=== PATIENT | female | born 1995 | race Caucasian/White ===

== ENCOUNTER 2020-07-19 12:23 | Outpatient (REF) | payer OTHER, SELFPAY ==
--- NOTE | ~2020-07-19 | XR_ITS ---
EXAMINATION: XR HAND, LEFT CLINICAL INFORMATION: Pain in left fingers COMPARISON: None TECHNIQUE: PA, lateral, and oblique views of the left hand. FINDINGS: The bones and soft tissues are normal. No fracture. Alignment is anatomic. Joint spaces are maintained. No erosions or soft tissue calcifications. XR/XR hand LT min 3V IMPRESSION: Normal left hand.
== END 2020-07-19 12:24 | disposition home or self-care (01) ==
LOC: HO.HMGCX 12:23
PROVIDERS: PCP Internal Medicine; Visit Provider Physician Assistant
DX: M79.645 Pain in left finger(s) (principal)
CPT/HCPCS: 73130

== ENCOUNTER 2021-04-17 13:05 | Outpatient (REF) | payer OTHER, SELFPAY ==
--- NOTE | ~2021-04-17 | XR_ITS ---
EXAMINATION: XR ABDOMEN KUB CLINICAL INDICATION: Dorsalgia. COMPARISON: None TECHNIQUE: AP view of the abdomen. FINDINGS: There is moderate stool seen throughout the colon without any significant distention. There is no radiopaque calculi. No organomegaly. There is incidental finding of an IUD in the pelvis is noted. No gross bony abnormality. XR/XR KUB IMPRESSION: Mild constipation.
[2021-04-17 17:25] LABS: Appearance Urine HAZY; Color Urine YELLOW; Glucose Urine UA NEG (NEG); Leukocyte Esterase Urine NEG (NEG); Nitrite Urine NEG (NEG); Urine Blood NEG (NEG); Urine Ketones NEG (NEG); Urine Protein NEG (NEG-TRACE)
[2021-04-18 01:29] LABS: CT PCR NOT DETECTED (Not Detect.); NG PCR NOT DETECTED (Not Detect.)
== END 2021-04-17 13:06 | disposition home or self-care (01) ==
LOC: HO.HMGCX 13:05
PROVIDERS: Visit Provider Physician Assistant
DX: R30.0 Dysuria (principal); R39.15 Urgency of urination; M54.9 Dorsalgia, unspecified; Z11.8 Encounter for screening for other infectious and parasitic diseases; Z11.3 Encounter for screening for infections with a predominantly sexual mode of transmission; Z97.5 Presence of (intrauterine) contraceptive device
CPT/HCPCS: 74018; 81003; 87086; 87491; 87591

== ENCOUNTER 2023-08-17 08:13 | Outpatient (AMB) | payer OTHER, SELFPAY ==
--- NOTE | 2023-08-17 08:18 | AM.OFFWIN_ITS ---
Intake Vital Signs 08/17/23 08:25 Height 5 ft 2 in BP 124/70 Blood Pressure Location Lt brachial Position Sitting Pulse 84 Pulse Source Pulse Oximeter Temp 97.8 F Temp Source Temporal Artery Scan Pulse Oximetry (%) 98 Oxygen Delivery Method Room Air Intake Visit Reasons: Possible Sinus infection,throat & ear pain (lobby) Intake Note: pt is here today for sinus infection throat and ear pain started thursday Patient Tobacco Use Status: Never used Tobacco Allergies No Known Allergies Allergy (Verified 08/17/23 08:27) Bee Zee Allergy (Unknown, Uncoded 08/17/23 08:27) Unknown Do you need a note to return to daycare/school/sports/work: Yes HPI HPI Comments History of Present Illness Details Patient presents to the walk in for 3 days cough, sinus congestion, ear pain, sore throat No known sick contacts Denies fever, chest pain, shortness of breath, palpitations, syncope, weakness Has been taking OTC medications with minimal improvement. [facility] Social History Patient Tobacco Use Status: Never used Tobacco Review of Systems Const All systems reviewed & are unremarkable except as noted in HPI and below Physical Exam Vital Signs: Last Vital Signs Temp 97.8 F 08/17/23 08:25 Pulse 84 08/17/23 08:25 BP 124/70 08/17/23 08:25 Pulse Ox 98 08/17/23 08:25 Oxygen Delivery Method Room Air 08/17/23 08:25 General: awake, alert, oriented. Answers questions appropriately. Fully engaged in examination. Skin: warm, dry, intact HEENT: TMs intact bilaterally, without erythema. Posterior pharynx without erythema or exudate. Sclera without icterus or injection. Cardiac: External chest normal in appearance. RRR Respiratory: +cough. LSCTAB. Abdomen: without gross distension. Neurological: Oriented to person, place, time and situation. Thought process intact. Psychiatric: Appropriate mood and affect. Good judgment and insight. Results AMB Rapid Strep AMB Rapid Strep Negative Last Edit by Yessy Howard MA on 08/17/23 08:37 Results Reviewed Results Reviewed: Rapid strep negative Assessment & Plan Assessment & Plan (1) URI (upper respiratory infection): Code(s): J06.9 - Acute upper respiratory infection, unspecified Plan URI, no abx warranted. Rapid strep negative SARS-CoV2/FLU/RSV swab collected, results pending. Patient aware she will be called with results. Benzonatate 100mg po bid as needed Rest, drink plenty of fluids, tylenol or motrin as needed. Recommend taking OTC nasal decongestants or flonase. Follow up with pcp or in clinic for any new or worsening symptoms. Go to ER for shortness of breath, chest pain, palpitations, weakness, dizziness. Orders: Orders SARS-CoV2/FLU/RSV Today J06.9 - Acute upper respiratory infection, unspecified Medications: New benzonatate 100 mg PO BID PRN 20 caps 0RF cough Coding Level of Care Code Est Pt Level 3 (30508) Diagnoses URI (upper respiratory infection) J06.9
[2023-08-17 08:25] VITALS: BP 124/70; PULSE 84; TEMP 36.6; O2SAT 98
== END 2023-08-17 09:10 | disposition home or self-care (01) ==
PROVIDERS: PCP Nurse Practitioner Family; Visit Provider Registered Nurse Emergency
DX: J06.9 Acute upper respiratory infection, unspecified (principal)
CPT/HCPCS: 99213

== ENCOUNTER 2023-08-17 08:38 | Outpatient (REF) | payer OTHER, SELFPAY ==
[2023-08-17 11:53] LABS: Influenza A PCR NEGATIVE (Negative); Influenza B PCR NEGATIVE (Negative); Resp Syncy Virus RNA Qual PCR NEGATIVE (Negative); SARS COV2 PCR INHOUSE POSITIVE (Negative)
== END 2023-08-17 08:39 | disposition home or self-care (01) ==
LOC: HO.LAB 08:38
PROVIDERS: Visit Provider Registered Nurse Emergency
DX: Z11.52 Encounter for screening for COVID-19 (principal); J06.9 Acute upper respiratory infection, unspecified
CPT/HCPCS: 0241U

== ENCOUNTER 2024-01-01 10:56 | Outpatient (AMB) | payer OTHER, SELFPAY ==
--- NOTE | 2024-01-01 10:58 | A.OFFPC_ITS ---
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 (Asthma) Intake Note: new patient visit Allergies beeswax Allergy (Mild, Verified 01/01/24 11:22) Rash salicylic acid Allergy (Mild, Verified 01/01/24 11:22) Rash Medication List - Last Reconciled 01/01/24 by Flori Burgos, [facility]- albuterol sulfate 90 mcg/actuation 2 puffs inhalation Q6H PRN budesonide-formoterol 80-4.5 mcg/actuation (Symbicort) 2 puffs inhalation BID famotidine 20 mg PO BID fluticasone propionate 50 mcg/actuation 2 sprays intranasal QAM levonorgestrel-ethinyl estrad 0.1-20 mg-mcg (Sronyx) 1 tab PO DAILY montelukast 10 mg PO DAILY Tobacco use date assessed: 01/01/24 Dental Screening Dental Screen Date: 01/01/24 Did you have a dental visit in the last 12 months?: No Did you have a dental problem in the last 6 months where you did not have access to dental care?: No Was dental information given to patient?: Patient has dentist HPI HPI Comments History of Present Illness Details 28 y/o F with asthma, obesity, uterine f ibroid s/p removal, GERD, RIVER Surgery: 07/2022 uterine fibroid removal Family hx: Dad 03/2022 throat cancer dx now in remission [smoker] etoh abuse sober for years, Mom asthma Siblings: twin sister, younger 1/2 sister alive and well MGM sinus cancer MGF pancreatic cancer PGM breast cancer PGF liver cancer 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 Does plan to conceive after September 2024 HEALTH MAINTENANCE: PAP reports WNL done in 2021 TDAP today SPECIALISTS: JACQUARD FIXER Pulm @ [facility] Here today to establish care and for complete physical exam. Coming from [facility] in [place] No medical records avail to me Dx with asthma 06/2022 after being placed under sedation for uterine fibroid removal, she suffered respiratory failure, was intubated and placed in ICU for 24 hours. Was able to have successful surgery the next month w/o respiratory incident. Routine f/u with Pulm at [facility], cleared for annual visits. Reports that her symptoms are controlled. She does have triggers such as strong fragrances. Significant family hx of cancer; Reports genetic workup in past negative. In regards to mood, has returned to gym to help. Overall feels tired all of the time. Getting September 2024, bought house. So has addl stressors. Wakes feeling tired, other than snoring negative ESS. Has never had sleep study. Has used counseling in past, not helpful. Was given hydroxyzine while hospitalized with + effect. Nothing else since. Reports that the anxiety symptoms are there all of the time. Uses grounding to help. Eye exam: last exam 2 years ago, goes every other year. Wears glasses Skin: generally dry skin. Appetite: doing intermittent fasting, has GERD well controlled with famotidine b.i.d.. Normal elimination patterns. 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 Knot like sensation, pain when turning neck. Has never done PT. Plan check labs consider starting SSRI vs PRN medication to help w/ anxiety Tdap today Continue follow up with pulmonology as well as gynecological assistant. Refer to physical therapy to help with the back pain. If this is not effective could consider chiropractic medicine. Incidental noting of enlarged tonsils. Patient reports that this is lifelong. Has never had an ENT evaluation. Reports childhood strep infections, nothing recent. May benefit from an ENT evaluation in the future. Return to the office in 4-6 weeks to review labs and discuss starting medications to help with anxiety. This note is constructed using voice recognition software. While every effort has been made to ensure accuracy in complaint supervisor, still errors may have been included Sometimes, these errors may affect the content or meaning of the given sentence . [facility] Medical History (Updated 01/01/24 @ 14:37 by [facility] Asthma Surgical History (Updated 01/01/24 @ 11:17 by Maria Elena Mckeon) H/O myomectomy Family History (Updated 01/01/24 @ 11:19 by Maria Elena Mckeon) Father Substance abuse Throat cancer Mother Asthma Maternal Grandmother Breast cancer Pancreas cancer Paternal Grandfather Maxillary sinus cancer Liver cancer Social History (Updated 01/01/24 @ 11:10 by Maria Elena Mckeon) Household Members: Other Household Members Other:: fiance Housing: House Alcohol intake: never Patient Tobacco Use Status: Never used Tobacco e-Cigarette/Vaping Use: Never Used service: No Current occupational status: employed 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 1. Little interest or pleasure in doing things: not at all 2. Feeling down, depressed, or hopeless: not at all 3. Trouble falling or staying asleep, or sleeping too much: several days 4. Feeling tired or having little energy: several days 5. Poor appetite or overeating: several days 6. Feeling bad about yourself - or that you are a failure or have let yourself or your family down: several days 7. Trouble concentrating on things, such as reading the newspaper or watching television: not at all 8. Moving or speaking so slowly that other people could have noticed. Or the opposite - being so fidgety or restless that you have been moving around a lot more than usual: not at all 9. Thoughts that you would be better off or of hurting yourself in some way: not at all Total score: 4 Depression Screening Interpretation: Negative Depression Screening Done: Yes 12583 - PHQ-9 Billing: Yes Source: Developed by Drs. Luis Dawson, Tri Sagastume, Km Melgoza and colleagues, with an educational radames from [employer]. Thrive Questionnaire Date Thrive assessed: 01/01/24 I am a: Patient What is your living situation today?: I have a steady place to live Within the past 12 months, did the food you bought not last and you didn't have the money to get more?: Never true Within the past 12 months, did you worry whether your food would run out before you got money to buy more?: Never true Do you have trouble paying for medicines?: No Do you have trouble getting transportation to medical appointments?: No Do you have trouble paying your heating and electricity bill?: No Do you have trouble taking care of your child, family member or friend?: No Do you have trouble with day-to-day activities such as bathing, preparing meals, shopping, managing finances, etc.?: No Are you currently unemployed and looking for a job?: No Are you interested in more education?: No Please select the resources that you would like help with: None THRIVE Score: 0 AUDIT C Alcohol Use Questionnaire (AUDIT-C) 1. How often do you have a drink containing alcohol?: Monthly or less 2. How many drinks containing alcohol do you have on a typical day when you are drinking?: 1 or 2 3. How often do you have six or more drinks on one occasion?: Never Total Score: 1 Score Reviewed/Action Taken: Yes RIVER-7 AMB Questionnaire RIVER-7 Date RIVER - 7 assessed: 01/01/24 Feeling nervous, anxious, or on edge: 1 = Several days Not being able to stop or control worryin = Several days Worrying too much about different things: 1 = Several days Trouble relaxin = Not at all Being so restless that it is hard to sit still: 0 = Not at all Becoming easily annoyed or irritable: 0 = Not at all Feeling afraid as if something awful might happen: 0 = Not at all Total RIVER-7 score (0-4 normal; 5-9 mild; 10-14 moderate; 15-21 severe): 3 Source: Developed by Drs. Luis Dawson, Tri Sagastume, Km Melgoza and colleagues, with an educational radames from [employer]. RIVER-7 Assessment Billing RIVER-7 Assessment Tool: RIVER-7 Assessment 83879 ACT Questionnaire In the past 4 weeks, how much of the time did your asthma keep you from getting as much done at work, school or at home?: Most of the time During the past 4 weeks, how often have you had shortness of breath?: 1-2 times a week During the past 4 weeks, how often did your asthma symptoms wake you up at night or earlier than usual in the morning?: Once or twice per week During the past 4 weeks, how often have you had to use your rescue inhaler or nebulizer medication?: Once a week or less How would you rate your asthma control during the past 4 weeks?: Somewhat controlled ACT Interpretation: Positive (active w pulm,using ISATU once per week. ) ACT Branch: Other Score: 17 Review of Systems Const Details: Constitutional: Denies fever. Skin: Denies rash. Eye: Denies eye pain. ENMT: Denies sore throat and nasal congestion. Respiratory: Denies shortness of breath and cough. Gastrointestinal: Denies nausea, vomiting or abdominal pain. Cardiovascular: Denies chest pain and syncope. Genitourinary: Denies dysuria. Musculoskeletal: Denies and extremity pain. Neurologic: Denies headaches, confusion, and weakness. Psychiatric: Denies suicidal thoughts and substance abuse. Allergy/ Immunologic: Denies impaired immunity. Physical exam (Primary Care) Vital Signs: Last Vital Signs Pulse 95 01/01/24 11:04 Resp 14 01/01/24 11:04 BP 118/70 01/01/24 11:04 Pulse Ox 98 01/01/24 11:04 Oxygen Delivery Method Room Air 01/01/24 11:04 BMI result Body Mass Index 35.7 BMI Assessment/Plan discussion: High BMI High, discussed plan: lifestyle Tobacco/Smoking Status: Tobacco use Status Tobacco use date assessed 01/01/24 01/01/24 11:19 Patient Tobacco Use Status Never used Tobacco 01/01/24 11:19 e-Cigarette/Vaping Use Never Used 01/01/24 11:19 PHQ-9: PHQ-9 Score PHQ-9: Total score 4 01/01/24 14:31 Depression Screening Interpretation: Negative Thrive Assessment: Date of Thrive Assessment Date Thrive assessed 01/01/24 01/01/24 11:19 Const Other: General: Well developed, well nourished, in no acute distress. Appears stated age. Head: Normocephalic, atraumatic. Eyes: Pupils are equal, round and reactive to light and accommodation. Conjunctivae are clear. Vision grossly normal. Ears: TMs clear AU, EACS WNL Nose: Patent, without discharge. Mouth: There are no ulcers or lesions noted. No inflammation, no post nasal drip, no plaques nor exudates.Tonsils grade 2-3, uvula midline Neck: Supple, no adenopathy or thyromegaly. Lungs: Clear to auscultation bilaterally. No rales, rhonchi or wheeze noted. Good air flow in all robert. Heart: Regular rate and rhythm. No murmurs, click, rubs or gallops are noted. Abdomen: Bowel sounds present in all quadrants. The abdomen is soft, nontender, with no masses or organomegaly noted. No hernias are noted. Musculoskeletal: Joints are nontender, without swelling, redness, or effusions. Range of motion is observed to be normal. Pulses: Peripheral pulses are equal and palpable bilaterally. Extremities: No clubbing, cyanosis nor edema is noted. Neurologic: Gait and station normal. Cranial Nerves 2-12 intact. Motor strength grossly symmetrical and intact. No sensory loss. Balance normal. Skin: No rashes, ulcers, or lesions noted. Turgor is good. Skin color is good. Hair and nails are without abnormalities. Psych: Normal eye contact, affect and mood appropriate, and normal interactions. Patient is alert and appropriate to context. Assessment and Plan Assessment & Plan (1) Encounter for general adult medical examination without abnormal findings: Code(s): Z00.00 - Encounter for general adult medical examination without abnormal findings (2) Laboratory exam ordered as part of routine general medical examination: Code(s): Z00.00 - Encounter for general adult medical examination without abnormal findings (3) Upper back pain: Code(s): M54.9 - Dorsalgia, unspecified (4) Mild intermittent asthma in adult without complication: Code(s): J45.20 - Mild intermittent asthma, uncomplicated (5) RIVER (generalized anxiety disorder): Code(s): F41.1 - Generalized anxiety disorder (6) Severe obesity (BMI 35.0-35.9 with comorbidity): Comment: BMI > 35 with asthma Code(s): E66.01 - Morbid (severe) obesity due to excess calories; Z68.35 - Body mass index [BMI] 35.0-35.9, adult (7) GERD without esophagitis: Code(s): K21.9 - Gastro-esophageal reflux disease without esophagitis Orders: Orders Complete Blood Count no Diff Today Z00.00 - Encounter for general adult medical examination without abnormal findings Hemoglobin A1c Today Z00.00 - Encounter for general adult medical examination without abnormal findings TSH reflex Free T4 Today Z00.00 - Encounter for general adult medical examination without abnormal findings IRON PROFILE Today Z00.00 - Encounter for general adult medical examination without abnormal findings Comprehensive Met. Panel Today Z00.00 - Encounter for general adult medical examination without abnormal findings LDL Cholesterol Direct Today Z00.00 - Encounter for general adult medical examination without abnormal findings Vitamin B12 and Folate Today Z00.00 - Encounter for general adult medical examination without abnormal findings PT Evaluation and Treatment Today M54.9 - Dorsalgia, unspecified Medications: New montelukast 10 mg PO DAILY 90 tabs 2RF Patient Instructions: Health screenings for women You should visit your health care provider from time to time, even if you are healthy. The purpose of these visits is to: Screen for medical issues Assess your risk for future medical problems Encourage a healthy lifestyle Update vaccinations and other preventive care services Help you get to know your provider in case of an illness Information Even if you feel fine, you should still see your provider for regular checkups. These visits can help you avoid problems in the future. For example, the only way to find out if you have high blood pressure is to have it checked regularly. High blood sugar and high cholesterol levels also may not have any symptoms in the early stages. A simple blood test can check for these conditions. There are specific times when you should see your provider or receive specific health screenings. The [place] Preventive Services Task Force publishes a list of recommended screenings. Below are screening guidelines for women ages 18 to 39. BLOOD PRESSURE SCREENING Your blood pressure should be checked at least once every 3 to 5 years if: Your blood pressure is in the normal range (top number less than 120 mm Hg and bottom number less than 80 mm Hg) You don't have risk factors for high blood pressure Ask your provider if you need your blood pressure checked more often if: The top number is 120 to 129 mm Hg or the bottom number is 70 to 79 mm Hg You have diabetes, heart disease, kidney problems, are overweight, or have cert ain other health conditions You have a first-degree relative with high blood pressure You are Black You had high blood pressure during a If the top number is 130 mm Hg or greater or the bottom number is 80 mm Hg or greater, this is considered stage 1 hypertension. Schedule an appointment with your provider to learn how you can reduce your blood pressure. Watch for blood pressure screenings in your area. Ask your provider if you can stop in to have your blood pressure checked. BREAST CANCER SCREENING Experts do not agree about the benefits of breast self-exams in finding breast cancer or saving lives. Talk to your provider about what is best for you. A screening mammogram is not recommended for most women under age 40. Your provider may discuss and recommend mammograms, MRI scans, or ultrasounds if you have an increased risk for breast cancer, such as: A mother or sister who had breast cancer at a young age (most often starting screening earlier than the age the close relative was diagnosed) You carry a high-risk genetic marker CERVICAL CANCER SCREENING Cervical cancer screening should start at age 21 years unless your provider advises otherwise. After the first test: Women ages 21 through 29 should have a Pap test every 3 years. Exoprts do not agree on whether HPV testing is recommended for this age group. Women ages 30 through 65 should be screened with either a Pap test every 3 years or the HPV test every 5 years or both tests every 5 years (called cotesting ). Women who have been treated for precancer (cervical dysplasia) should continue to have Pap tests for 20 years after treatment or until age 65, whichever is longer. If you have had your uterus and cervix removed (total hysterectomy), and you have not been diagnosed with cervical cancer or precancer (high grade cervical neoplasia), you do not need cervical cancer screening. CHOLESTEROL SCREENING Cholesterol screening should begin at: Age 45 for women with no known risk factors for coronary heart disease Age 20 for women with known risk factors for coronary heart disease Repeat cholesterol screening should take place: Every 5 years for women with normal cholesterol levels More often if changes occur in lifestyle (including weight gain and diet) More often if you have diabetes, heart disease, kidney problems, or certain other conditions DIABETES SCREENING You should be screened for diabetes starting at age 35 and then repeated every 3 years if you have no risk factors for diabetes. Screening may need to start earlier and be repeated more often if you have other risk factors for diabetes, such as: You have a first degree relative with diabetes. You are overweight or have obesity. You have high blood pressure, prediabetes, or a history of heart disease. Screening for diabetes should be done if you are planning to become and you are overweight and have other risk factors such as high blood pressure. DENTAL EXAM Go to the dentist once or twice every year for an exam and cleaning. Your dentist will evaluate if you need more frequent visits. EYE EXAM Have an eye exam every 5 to 10 years before age 40. If you have vision problems, have an eye exam every 2 years or more often if recommended by your provider. You should have an eye exam that includes an examination of your retina (back of your eye) at least every year if you have diabetes. IMMUNIZATIONS Commonly needed vaccines include: Flu shot: get one every year. COVID-19 vaccine: ask your provider what is best for you. Tetanus-diphtheria and acellular pertussis (Tdap) vaccine: have one at or after age 19 as one of your tetanus-diphtheria vaccines if you did not receive it as an adolescent. Tetanus-diphtheria: have a booster (or Tdap) every 10 years. Varicella vaccine: receive 2 doses if you never had chickenpox or the varicella vaccine. Hepatitis B vaccine: receive 2, 3, or 4 doses, depending on your exact circumstances. Measles, mumps, and rubella (MMR) vaccine: receive 1 to 2 doses if you are not already immune to MMR. Your provider can tell you if you are immune. Ask your provider about the human papillomavirus (HPV) vaccine if: You have not received the HPV vaccine in the past You have not completed the full vaccine series (you should catch up on this shot) Ask your provider if you should receive other immunizations if you have certain health problems that increase your risk for some diseases such as pneumonia. INFECTIOUS DISEASE SCREENING Women who are sexually active should be screened for chlamydia and gonorrhea up until age 25. Women 25 years and older should be screened for chlamydia and gonorrhea if at high risk. Screening for hepatitis C: All adults ages 18 to 79 should get a one-time test for hepatitis C. people should be screened at every . Screening for human immunodeficiency virus (HIV): All people ages 15 to 65 should get a one-time test for HIV. Depending on your lifestyle and medical history, you may also need to be screened for infections such as syphilis and HIV, as well as other infections. PHYSICAL EXAM All adults should visit their provider from time to time, even if they are healthy. The purpose of these visits is to: Screen for disease Assess your risk of future medical problems Encourage a healthy lifestyle Update your vaccinations and other preventive care services Maintain a relationship with a provider in case of an illness Your height, weight, and BMI should be checked at every exam. During your exam, your provider may ask you about: Depression and anxiety Diet and exercise Alcohol and tobacco use Safety issues, such as using seat belts, smoke detectors, and intimate partner violence Your medicines and risk for interactions SKIN SELF-EXAM Your provider may check your skin for signs of skin cancer, especially if you're at high risk, such as if you: Have had skin cancer before Have close relatives with skin cancer Have a weakened immune system OTHER SCREENING Talk with your provider about colon cancer screening if you have a strong family history of colon cancer or polyps, or if you have had inflammatory bowel disease or polyps yourself. Routine bone density screening of women under 40 is not recommended. Walk-In Care (Urgent Care): We Make it Easy Walk-in for urgent medical issues such as: ? Seasonal Allergies ? Insect Bites ? Cough ? Diarrhea ? Acute Asthma Attacks ? Back, Knee or Joint Pain ? Ear Infection ? Fever without a Rash ? Headaches ? Nausea ? Davis Eye, Rash or Skin Irritation ? Sore Throat ? Sports Physicals ? Vomiting Most insurances are accepted. Patients do not need to be part of the [facility] to seek care at the walk-in clinic. Locations [facility] , [place] [address] ? [phone] [facility] Walk-In Care in [place] provides services to ages 18 and over. Open Thursday-Thursday: 8 a.m. to 5 p.m. and Thursday: 9 a.m. to 3 p.m.* *Hours may vary due to staffing availability. To confirm Walk-In Care hours in [place], please call [phone]. [address] [place] [id number] ? [phone] [facility] Walk-In Care in [place] provides services to ages 12 and over. Open Thursday-Thursday: 8 a.m. to 5 p.m. Hours may vary due to staffing availability. To confirm Walk-In Care hours in [place], please call [phone]. LABORATORY SERVICES: [facility] Lab ? Primary Location [address] [place] [address] Thursday through Thursday 6:00 AM ? 5:00 PM Thursday 7:00 AM ? 11:00 AM* [phone] The [facility] Lab is centrally located near the front entrance of the [facility] for easy outpatient access. Convenient parking is provided for outpatients. *Hours may vary due to staffing availability. To confirm Laboratory hours for any location, please call [phone]. Offsite Location For your convenience, we offer offsite laboratory draw stations at the following locations: [address] [facility], [place] ? [facility] [address], [address], [place] Thursday through Thursday 7:30 AM ? 1:00 PM* [phone] *Hours may vary due to staffing availability. To confirm Laboratory hours for a [place] location, please call [phone]. [place] [address] [facility] [place] Thursday through Thursday 6:00 AM ? 3:30 PM* Thursday 6:30 AM ? 3 PM* [phone] *Hours may vary due to staffing availability. To confirm Laboratory hours for any location, please call [phone]. [address] [facility] Thursday through Thursday 7:30 AM ? 4:00 PM* [phone] *Hours may vary due to staffing availability. To confirm Laboratory hours for any location, please call [phone] [place] [address] Thursday through 9:00 AM ? 4:00 PM* *Hours may vary due to staffing availability. To confirm Laboratory hours for any location, please call [phone]. Appointments are not necessary. Walk-ins are welcome. Like all the departments throughout the [facility], our Lab undergoes frequent reviews to ensure the quality and accuracy of test results, and our staff takes special pride in its status as a nationally accredited facility. Patient Portal: ONE PATIENT. ONE RECORD. BETTER CARE. [facility] has a fully integrated, cutting- edge mobile electronic health information system that has revolutionized the way we care for our patients and manage our organization. This system improves communication and coordination enabling us to provide safe, higher-quality care, and an overall positive experience for staff and patients. Our first priority, as always, is to deliver the highest quality care possible. The system is running in the background supporting that priority. This portal is for all [facility] services and practices. If you are experiencing any technical difficulties with enrolling or logging into the Patient Portal please complete the [facility] Patient Portal Technical Support Form. [facility] now offers a new secure on-line interactive tool for patients to review their health information ? ?Patient Portal. This interactive web portal will enable patients and their families to take an active role in their care by providing easy, secure access to their health information via the internet. The Patient Portal provides patients with instant access to their health information, including laboratory results, medications, allergies, demographic information, visit history, and more. In addition to managing their own care, parents and health care proxies with authorized consent will appreciate the ability to access the records of those individuals for whom they provide care. Please note: if you wish to gain access (Proxy) to another patient?s portal, you will be required to come to the Medical Records Department in person at [facility]. Both the patient giving proxy access and the proxy will need to provide photo identification and complete the appropriate authorization. The Patient Portal also allows track their appointments online. The [facility] Patient Portal also saves patients time by allowing them to submit updates to their demographic and contact information prior to their visits. Portal email notifications will also alert patients to any new activity on their portal, such as test results and new appointments. In order to initially enroll in the [facility] Patient Portal, you will need to enter some required information including the following: * your [facility] Medical Record number * your personal home email address * name * date of Please note: In order to enroll in the [facility] Patient Portal, we need to have your email address on file in your electronic medical record. ?The email address needs to be specific for one person (yourself) in order for your Portal enrollment to be successful. ?You can update your email address in person with our Registration staff when you are registering for a hospital visit. ?Otherwise, you will need to come to the Health Information Management (Medical Records) Department at [facility]. ?We are open from Thursday ? Thursday from 7:30 a.m. ? 4:30 p.m. ?You will be required to present a photo id. Once you have successfully enrolled in the Patient Portal, you will receive a one-time user id and password for the Portal, sent to your email address. ?This will allow you to log into the Patient Portal within 99 hrs and reset your own logon id and password, and define personal security questions. ?Once your permanent login and password have been set, you can log into the [facility] Patient Portal at any time via the blue button above or from the Portal Logon button on any page of the [facility] website. [facility] encourage all of our patients to enroll in Patient Portal as it presents a valuable opportunity for patients and their families to actively participate in their care and stay healthy Welcome to [facility]. ?We look forward to working with you. Coding Level of Care Code New Pt Prev Care 18-39yr(63802 Diagnoses Encounter for general adult medical examination without abnormal findings Z00.00 Laboratory exam ordered as part of routine general medical examination Z00.00 Upper back pain M54.9 Mild intermittent asthma in adult without complication J45.20 RIVER (generalized anxiety disorder) F41.1 Severe obesity (BMI 35.0-35.9 with comorbidity) E66.01; Z68.35 GERD without esophagitis K21.9 Additional Codes RIVER-7 Assessment Billing - RIVER-7 Assessment Tool: RIVER-7 Assessment [id number] ([id number])
[2024-01-01 11:04] VITALS: BP 118/70; PULSE 95; RESP 14; O2SAT 98; BMI 35.7
--- NOTE | 2024-01-01 11:16 | A.OFFPC_ITS ---
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 (Asthma) Allergies beeswax Allergy (Mild, Verified 01/01/24 11:22) Rash salicylic acid Allergy (Mild, Verified 01/01/24 11:22) Rash Medication List - Last Reconciled 01/01/24 [facility] albuterol sulfate 90 mcg/actuation 2 puffs inhalation Q6H PRN budesonide-formoterol 80-4.5 mcg/actuation (Symbicort) 2 puffs inhalation BID famotidine 20 mg PO BID fluticasone propionate 50 mcg/actuation 2 sprays intranasal QAM levonorgestrel-ethinyl estrad 0.1-20 mg-mcg (Sronyx) 1 tab PO DAILY montelukast 10 mg PO DAILY Tobacco use date assessed: 01/01/24 Dental Screening Dental Screen Date: 01/01/24 Did you have a dental visit in the last 12 months?: No Did you have a dental problem in the last 6 months where you did not have access to dental care?: No Was dental information given to patient?: Patient has dentist HPI HPI Comments History of Present Illness Details This is a duplicate encounter. [facility] Medical History (Updated 01/01/24 @ 14:37 by ZIA Banegas) Asthma Surgical History (Updated 01/01/24 @ 11:17 by Maria Elena Mckeon) H/O myomectomy Family History (Updated 01/01/24 @ 11:19 by Maria Elena Mckeon) Father Substance abuse Throat cancer Mother Asthma Maternal Grandmother Breast cancer Pancreas cancer Paternal Grandfather Maxillary sinus cancer Liver cancer Social History (Updated 01/01/24 @ 11:10 by Maria Elena Mckeon) Household Members: Other Household Members Other:: fiance Housing: House Alcohol intake: never Patient Tobacco Use Status: Never used Tobacco e-Cigarette/Vaping Use: Never Used service: No Current occupational status: employed 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 1. Little interest or pleasure in doing things: not at all 2. Feeling down, depressed, or hopeless: not at all 3. Trouble falling or staying asleep, or sleeping too much: several days 4. Feeling tired or having little energy: several days 5. Poor appetite or overeating: several days 6. Feeling bad about yourself - or that you are a failure or have let yourself or your family down: several days 7. Trouble concentrating on things, such as reading the newspaper or watching television: not at all 8. Moving or speaking so slowly that other people could have noticed. Or the opposite - being so fidgety or restless that you have been moving around a lot more than usual: not at all 9. Thoughts that you would be better off or of hurting yourself in some way: not at all Total score: 4 38090 - PHQ-9 Billing: Yes Source: Developed by Drs. Luis Dawson, Tri Sagastume, Km Melgoza and colleagues, with an educational radames from [employer]. Thrive Questionnaire Date Thrive assessed: 01/01/24 I am a: Patient What is your living situation today?: I have a steady place to live Within the past 12 months, did the food you bought not last and you didn't have the money to get more?: Never true Within the past 12 months, did you worry whether your food would run out before you got money to buy more?: Never true Do you have trouble paying for medicines?: No Do you have trouble getting transportation to medical appointments?: No Do you have trouble paying your heating and electricity bill?: No Do you have trouble taking care of your child, family member or friend?: No Do you have trouble with day-to-day activities such as bathing, preparing meals, shopping, managing finances, etc.?: No Are you currently unemployed and looking for a job?: No Are you interested in more education?: No Please select the resources that you would like help with: None THRIVE Score: 0 RIVER-7 AMB Questionnaire RIVER-7 Date RIVER - 7 assessed: 01/01/24 Feeling nervous, anxious, or on edge: 1 = Several days Not being able to stop or control worryin = Several days Worrying too much about different things: 1 = Several days Trouble relaxin = Not at all Being so restless that it is hard to sit still: 0 = Not at all Becoming easily annoyed or irritable: 0 = Not at all Feeling afraid as if something awful might happen: 0 = Not at all Total RIVER-7 score (0-4 normal; 5-9 mild; 10-14 moderate; 15-21 severe): 3 Source: Developed by Drs. Luis Dawson, Tri Sagastume, mK Melgoza and colleagues, with an educational radames from [employer]. ACT Questionnaire In the past 4 weeks, how much of the time did your asthma keep you from getting as much done at work, school or at home?: Most of the time During the past 4 weeks, how often have you had shortness of breath?: 1-2 times a week During the past 4 weeks, how often did your asthma symptoms wake you up at night or earlier than usual in the morning?: Once or twice per week During the past 4 weeks, how often have you had to use your rescue inhaler or nebulizer medication?: Once a week or less How would you rate your asthma control during the past 4 weeks?: Somewhat controlled Score: 17 Physical exam (Primary Care) Vital Signs: Last Vital Signs Pulse 95 01/01/24 11:04 Resp 14 01/01/24 11:04 BP 118/70 01/01/24 11:04 Pulse Ox 98 01/01/24 11:04 Oxygen Delivery Method Room Air 01/01/24 11:04 BMI result Body Mass Index 35.7 Tobacco/Smoking Status: Tobacco use Status Tobacco use date assessed 01/01/24 01/01/24 11:19 Patient Tobacco Use Status Never used Tobacco 01/01/24 11:19 e-Cigarette/Vaping Use Never Used 01/01/24 11:19 PHQ-9: PHQ-9 Score PHQ-9: Total score 4 01/01/24 14:32 Thrive Assessment: Date of Thrive Assessment Date Thrive assessed 01/01/24 01/01/24 11:19 Assessment and Plan Assessment & Plan (1) Laboratory exam ordered as part of routine general medical examination: Code(s): Z00.00 - Encounter for general adult medical examination without abnormal findings (2) Upper back pain: Code(s): M54.9 - Dorsalgia, unspecified Orders: Orders Complete Blood Count no Diff Today Z00.00 - Encounter for general adult medical examination without abnormal findings Hemoglobin A1c Today Z00.00 - Encounter for general adult medical examination without abnormal findings TSH reflex Free T4 Today Z00.00 - Encounter for general adult medical examination without abnormal findings IRON PROFILE Today Z00.00 - Encounter for general adult medical examination without abnormal findings Comprehensive Met. Panel Today Z00.00 - Encounter for general adult medical examination without abnormal findings LDL Cholesterol Direct Today Z00.00 - Encounter for general adult medical examination without abnormal findings Vitamin B12 and Folate Today Z00.00 - Encounter for general adult medical examination without abnormal findings PT Evaluation and Treatment Today M54.9 - Dorsalgia, unspecified Medications: New montelukast 10 mg PO DAILY 90 tabs 2RF Coding Level of Care Code Left Without Being Seen Diagnoses Laboratory exam ordered as part of routine general medical examination Z00.00 Upper back pain M54.9
== END 2024-01-01 12:01 | disposition home or self-care (01) ==
PROVIDERS: PCP Nurse Practitioner Family; Visit Provider Nurse Practitioner Family
DX: Z00.00 Encounter for general adult medical examination without abnormal findings (principal); Z68.35 Body mass index [BMI] 35.0-35.9, adult; E66.01 Morbid (severe) obesity due to excess calories; Z23 Encounter for immunization; M54.9 Dorsalgia, unspecified; J45.20 Mild intermittent asthma, uncomplicated; F41.1 Generalized anxiety disorder; K21.9 Gastro-esophageal reflux disease without esophagitis
CPT/HCPCS: 90471; 90715; 99385

== ENCOUNTER 2024-01-22 10:33 | Outpatient (REF) | payer OTHER, SELFPAY ==
[2024-01-22 11:00] LABS: Hematocrit 46.2 % (37.0-47.0); Hemoglobin 15.3 g/dl (12.0-16.0); Mean Corpuscular HGB Conc 33.1 g/dl (31.0-35.0); Mean Corpuscular Hemoglobin 28.5 pg (27.0-33.0); Mean Corpuscular Volume 86.2 fL (80.0-98.0); Mean Platelet Volume 11.1 fL (9.4-12.3); Platelet Count 281 X10*3/uL (160-400); Red Blood Count 5.36 X10*6/uL (4.20-5.50); Red Cell Distribution Width 12.1 % (11.0-16.0); White Blood Count 10.5 X10*3/uL (4.8-10.8)
[2024-01-22 11:09] LABS: Estimated Average Glucose 97 mg/dL; Hemoglobin A1C 120.3211 umol/L
[2024-01-22 11:58] LABS: Alanine Aminotransferase 33 U/L (0-31); Albumin Level 4.7 g/dL (3.5-5.0); Alkaline Phosphatase 48 U/L (39-117); Anion Gap 16 (12-20); Aspartate Amino Transferase 24 U/L (5-31); Bilirubin Total 1.3 mg/dL (0.0-1.0); Blood Urea Nitrogen 10 mg/dL (9-16); Calcium 9.7 mg/dL (8.4-10.2); Carbon Dioxide 25 mmol/L (22-29); Chloride 105 mmol/L (96-108); Estimated Glomerular Filt Rate > 60; Glucose Random 96 mg/dL (60-115); Iron 130 mcg/dL (30-160); Percent Iron Saturation 34 % (15-50); Potassium 4.3 mmol/L (3.3-5.1); Sodium 142 mmol/L (135-145); Total Iron Binding Capacity 378 mcg/dL (228-428); Unsaturated Iron Binding 248 ug/dL
[2024-01-22 12:04] LABS: TSH reflex Free T4 2.18 uIU/mL (0.32-4.0)
[2024-01-22 12:27] LABS: Folate 15.7 ng/mL (> or = 4.0); Vitamin B12 695 pg/mL (200-900)
[2024-01-23 14:13] LABS: LDL Cholesterol Direct 158 mg/dL (<100)
== END 2024-01-22 10:34 | disposition home or self-care (01) ==
LOC: HO.LAB 10:33
PROVIDERS: PCP Nurse Practitioner Family; Visit Provider Nurse Practitioner Family
DX: Z00.00 Encounter for general adult medical examination without abnormal findings (principal); Z20.2 Contact with and (suspected) exposure to infections with a predominantly sexual mode of transmission
CPT/HCPCS: 36415; 80053; 82607; 82746; 83036; 83540; 83721; 84443; 85027

== ENCOUNTER 2024-01-25 08:55 | Outpatient (AMB) | payer OTHER, SELFPAY ==
--- NOTE | 2024-01-25 08:56 | A.OFFPC_ITS ---
Vital Signs 01/25/24 08:58 Height 5 ft 2 in Weight 196 lb 2 oz BMI 35.9 BP 114/68 Blood Pressure Location Lt brachial Position Sitting Respiration 14 Pulse 78 Pulse Source Pulse Oximeter Pulse Oximetry (%) 99 Oxygen Delivery Method Room Air Intake Visit Reasons: 4 weeks fu labs/anxiety Intake Note: follow up on labs and anxiety Allergies beeswax Allergy (Mild, Verified 01/25/24 09:08) Rash salicylic acid Allergy (Mild, Verified 01/25/24 09:08) Rash Medication List - Last Reconciled 01/25/24 by Flori Burgos, SOFTWARE DEVELOPER MANAGER- albuterol sulfate 90 mcg/actuation 2 puffs inhalation Q6H PRN budesonide-formoterol 80-4.5 mcg/actuation (Symbicort) 2 puffs inhalation BID famotidine 20 mg PO BID fluticasone propionate 50 mcg/actuation 2 sprays intranasal QAM levonorgestrel-ethinyl estrad 0.1-20 mg-mcg (Sronyx) 1 tab PO DAILY montelukast 10 mg PO DAILY Tobacco use date assessed: 01/01/24 Dental Screening Dental Screen Date: 01/01/24 HPI HPI Comments History of Present Illness Details 28 y/o F with asthma, obesity, uterine f ibroid s/p removal, GERD, RIVER, hyperlididemia Surgery: 07/2022 uterine fibroid removal Family hx: Dad 03/2022 throat cancer dx now in remission [smoker] etoh abuse sober for years, Mom asthma Siblings: twin sister, younger 1/2 sister alive and well MGM sinus cancer MGF pancreatic cancer PGM breast cancer PGF liver cancer Social: 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 Does plan to conceive after September 2024 HEALTH MAINTENANCE: PAP reports WNL done in 2021 TDAP today SPECIALISTS: HOUSE PRINCIPAL Pulm @ [facility] Here today for close routine fu: Labs from 01/22/2024 show a normal CBC, normal electrolytes, renal function, hemoglobin A1c 5.0%, normal iron profile, mild elevation in bilirubin 1.3, mild elevation in ALT 33, normal AST at 24, normal alk-phos, B12, folate, TSH normal, direct LDL 154 RIVER - pacing, elevated emotional response, worries all of the time. Used hydrozyine in the past with + effect. Would like PRN med. Plans to have children soon after marriage September 2024. Denies SI/HI Upper back pain, applying topical analgesics with short lived relief. Never did hear from PT, referral placed 01/01/24. At this time, will proceed with Chiro referral. [facility]. Lifestyle mods for Fatty liver and elevated cholesterol. Nutrition referral Exam: Awake alert NAD Scleras nonicteric bilat RRR LS CTAB Mood and affecte appropriate Neck FROM, pain over STN on left, no spinal tenderness Plan Start hydroxyzine 25 mg PO TID prn. Okay to use a half a tablet as needed instead of a whole tablet. Refer for counseling. Please keep a log of how often you are using the hydroxyzine. We will review this at the next visit Dietary and lifestyle modifications, referral to nutrition. Refer to chiropractic medicine for the left upper back pain. Please see if there is any correlation in your back pain with your meals or prolonged fasting. Given your labs there is a differential to include gallbladder disease. I would like to see you back in about 6 weeks to follow up on the above, sooner as needed Total time spent caring for the patient today was 30 minutes. This includes time spent before the visit reviewing the chart, time spent during the visit, and time spent after the visit on documentation This note is constructed using voice recognition software. While every effort has been made to ensure accuracy in weapons system instrument mechanic, still errors may have been included Sometimes, these errors may affect the content or meaning of the given sentence . [facility] Medical History (Updated 01/25/24 @ 09:25 by Flori Burgos [facility]) Asthma Surgical History (Updated 01/01/24 @ 11:17 by Maria Elena Mckeon MA) H/O myomectomy Family History (Updated 01/01/24 @ 11:19 by Maria Elena Mckeon MA) Father Substance abuse Throat cancer Mother Asthma Maternal Grandmother Breast cancer Pancreas cancer Paternal Grandfather Maxillary sinus cancer Liver cancer Social History (Updated 01/01/24 @ 11:10 by Maria Elena Mckeon MA) Household Members: Other Household Members Other:: fiance Housing: House Alcohol intake: never Patient Tobacco Use Status: Never used Tobacco e-Cigarette/Vaping Use: Never Used service: No Current occupational status: employed 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 1. Little interest or pleasure in doing things: not at all 2. Feeling down, depressed, or hopeless: several days 3. Trouble falling or staying asleep, or sleeping too much: several days 4. Feeling tired or having little energy: several days 5. Poor appetite or overeating: not at all 6. Feeling bad about yourself - or that you are a failure or have let yourself or your family down: not at all 7. Trouble concentrating on things, such as reading the newspaper or watching television: not at all 8. Moving or speaking so slowly that other people could have noticed. Or the opposite - being so fidgety or restless that you have been moving around a lot more than usual: not at all 9. Thoughts that you would be better off or of hurting yourself in some way: not at all Total score: 3 75275 - PHQ-9 Billing: Yes Source: Developed by Drs. Luis Dawson, Tri Sagastume, Km Melgoza and colleagues, with an educational radames from [employer]. Thrive Questionnaire Date Thrive assessed: 01/01/24 AUDIT C Alcohol Use Questionnaire (AUDIT-C) 2. How many drinks containing alcohol do you have on a typical day when you are drinking?: 1 or 2 3. How often do you have six or more drinks on one occasion?: Never Total Score: 0 RIVER-7 AMB Questionnaire RIVER-7 Date RIVER - 7 assessed: 01/25/24 Feeling nervous, anxious, or on edge: 1 = Several days Not being able to stop or control worryin = Several days Worrying too much about different things: 1 = Several days Trouble relaxin = Not at all Being so restless that it is hard to sit still: 1 = Several days Becoming easily annoyed or irritable: 0 = Not at all Feeling afraid as if something awful might happen: 0 = Not at all Total RIVER-7 score (0-4 normal; 5-9 mild; 10-14 moderate; 15-21 severe): 4 Source: Developed by Tri Meier. Mitesh, Km Melgoza and colleagues, with an educational radames from [employer]. RIVER-7 Assessment Billing RIVER-7 Assessment Tool: RIVER-7 Assessment 02649 Physical exam (Primary Care) Vital Signs: Last Vital Signs Pulse 78 01/25/24 08:58 Resp 14 01/25/24 08:58 BP 114/68 01/25/24 08:58 Pulse Ox 99 01/25/24 08:58 Oxygen Delivery Method Room Air 01/25/24 08:58 BMI result Body Mass Index 35.9 Tobacco/Smoking Status: Tobacco use Status Tobacco use date assessed 01/01/24 01/25/24 09:02 Patient Tobacco Use Status Never used Tobacco 01/25/24 09:02 e-Cigarette/Vaping Use Never Used 01/25/24 09:02 PHQ-9: PHQ-9 Score PHQ-9: Total score 3 01/25/24 09:09 Thrive Assessment: Date of Thrive Assessment Date Thrive assessed 01/01/24 01/25/24 09:02 Assessment and Plan Assessment & Plan (1) RIVER (generalized anxiety disorder): Code(s): F41.1 - Generalized anxiety disorder (2) Upper back pain: Code(s): M54.9 - Dorsalgia, unspecified (3) Severe obesity (BMI 35.0-35.9 with comorbidity): Comment: BMI > 35 with asthma Code(s): E66.01 - Morbid (severe) obesity due to excess calories; Z68.35 - Body mass index [BMI] 35.0-35.9, adult (4) Fatty liver: Code(s): K76.0 - Fatty (change of) liver, not elsewhere classified (5) Hyperlipidemia: Code(s): E78.5 - Hyperlipidemia, unspecified Qualifiers: Hyperlipidemia type: moderate mixed hyperlipidemia not requiring statin therapy Qualified Code(s): E78.2 - Mixed hyperlipidemia Orders: Referrals Nurse Navigator Referral F41.1 - Generalized anxiety disorder Chiropractic Referral M54.9 - Dorsalgia, unspecified Nutrition/Dietitian Referral E66.01 - Morbid (severe) obesity due to excess calories, E78.5 - Hyperlipidemia, unspecified, K76.0 - Fatty (change of) liver, not elsewhere classified, Z68.35 - Body mass index [BMI] 35.0-35.9, adult Medications: New hydroxyzine HCl 25 mg PO TID PRN 90 tabs 0RF anxiety lidocaine 5% 1 appl topical TID PRN 50 grams 2RF pain Coding Level of Care Code Est Pt Level 4 (63668) Complex EM visit Add On G2211 Diagnoses RIVER (generalized anxiety disorder) F41.1 Upper back pain M54.9 Severe obesity (BMI 35.0-35.9 with comorbidity) E66.01; Z68.35 Fatty liver K76.0 Moderate mixed hyperlipidemia not requiring statin therapy E78.2 Hyperlipidemia type: moderate mixed hyperlipidemia not requiring statin therapy Additional Codes RIVER-7 Assessment Billing - RIVER-7 Assessment Tool: RIVER-7 Assessment [id number] ([id number])
[2024-01-25 08:58] VITALS: BP 114/68; PULSE 78; RESP 14; O2SAT 99; BMI 35.9
== END 2024-01-25 09:24 | disposition home or self-care (01) ==
PROVIDERS: PCP Nurse Practitioner Family; Visit Provider Nurse Practitioner Family
DX: F41.1 Generalized anxiety disorder (principal); M54.9 Dorsalgia, unspecified; E66.01 Morbid (severe) obesity due to excess calories; Z68.35 Body mass index [BMI] 35.0-35.9, adult; K76.0 Fatty (change of) liver, not elsewhere classified; E78.2 Mixed hyperlipidemia

== ENCOUNTER → 2024-01-25 08:55 | Outpatient (BNVA) | payer OTHER, SELFPAY | PROVIDERS: PCP Nurse Practitioner Family; Visit Provider Nurse Practitioner Family | DX: F41.1 Generalized anxiety disorder (principal); M54.9 Dorsalgia, unspecified; K76.0 Fatty (change of) liver, not elsewhere classified; E78.2 Mixed hyperlipidemia; E66.01 Morbid (severe) obesity due to excess calories; Z68.35 Body mass index [BMI] 35.0-35.9, adult | CPT/HCPCS: 96127 ==

== ENCOUNTER 2024-02-03 12:50 | Outpatient (AMB) | payer OTHER, SELFPAY ==
[2024-02-03 13:00] VITALS: BMI 35.7
--- NOTE | 2024-02-03 13:00 | A.OFFVIS_ITS ---
VS Expanded 02/03/24 13:00 02/04/24 21:24 Height 5 ft 2 in 5 ft 2 in Weight 195 lb 1.745 oz 195 lb BMI 35.7 35.7 Intake Visit Reasons: Fatty Liver/CONFIRMED Allergies beeswax Allergy (Mild, Verified 01/25/24 09:08) Rash salicylic acid Allergy (Mild, Verified 01/25/24 09:08) Rash Nutrition Presentation Details: Pt presents for MNT for morbid obesity. Pt was referred by PCP Pt also has hx of hyperlipidemia, fatty liver Food frequency fruits:0-1/d fish : 0-1/wk dairy: 2x/wk vex/wk starches> 20/d fluids: 24 oz/d phyiscal activity-- ETOH: 0-1/wk BS Monitoring Most Recent Diabetes Results: Creatinine 0.70 mg/dL (0.5-1.4) 01/22/24 Blood Urea Nitrogen 10 mg/dL (9-16) 01/22/24 Sodium 142 mmol/L (135-145) 01/22/24 Potassium 4.3 mmol/L (3.3-5.1) 01/22/24 Chloride 105 mmol/L (96-108) 01/22/24 Carbon Dioxide 25 mmol/L (22-29) 01/22/24 Calcium 9.7 mg/dL (8.4-10.2) 01/22/24 AST 24 U/L (5-31) 01/22/24 ALT 33 U/L (0-31) H 01/22/24 Total Protein 8.0 g/dL (6.5-8.0) 01/22/24 Albumin 4.7 g/dL (3.5-5.0) 01/22/24 RZL-Qruoqty-To.Jeor Equation Height: 5 ft 2 in Weight: 195 lb Resting Metabolic Rate: 1578.95 Calculated Activity Level: Sedentary Calories Needed to Maintain Weight: 1894.74 Diagnosis Nutrition problem #1: excessive energy intake As related to (etiology) #1: diagnosis As evidenced by (sign/symptom) #1: knowledge deficit of diet [facility] Medical History (Updated 02/04/24 @ 21:[address], LDN) Asthma Surgical History (Updated 01/01/24 @ 11:17 by Maria Elena Mckeon MA) H/O myomectomy Family History (Updated 01/01/24 @ 11:19 by Maria Elena Mckeon MA) Father Substance abuse Throat cancer Mother Asthma Maternal Grandmother Breast cancer Pancreas cancer Paternal Grandfather Maxillary sinus cancer Liver cancer Social History (Updated 01/01/24 @ 11:10 by Maria Elena Mckeon MA) Household Members: Other Household Members Other:: fiance Housing: House Alcohol intake: never Patient Tobacco Use Status: Never used Tobacco e-Cigarette/Vaping Use: Never Used service: No Current occupational status: employed 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 Cognitive needs: No Hearing needs: No Vision needs: Yes (wear glasses) Assessment & Plan Assessment & Plan (1) Severe obesity (BMI 35.0-35.9 with comorbidity): Comment: BMI > 35 , fatty liver, hyperlipidemia Code(s): E66.01 - Morbid (severe) obesity due to excess calories; Z68.35 - Body mass index [BMI] 35.0-35.9, adult Category: Medical Plan: Wt: 89 Kg ( 02/24 ) Est kcal needs as per MSJ: 1900 (40% carb, 30% protein/fat) Est fluid needs as per 25-30 ml/d: 2700 Est prot per day as per 1 g/kg bw: 89 Recommend fiber intake : 8-10 g per day and gradually increase to 25-28 g per day for women and 35-38 g for men or as tolerated Recommend sodium intake per day : less than 2300 mg Educated patient on: ( R = reviewed V = verbalizes understanding N/R = needs review N/A = not applicable * Food sources of carbohydrate, adequate serving sizes and its role in various health conditions: R V N/R * Differences between complex carbohydrates a simple carbohydrates, role of fiber in diet: R * Lean protein sources of foods: R V NR * Differences between types of fats and role in diet (mono on saturated fat fatty acids, saturated fatty acids, trans fats): R V N/R * Food sources of sodium in salt and healthy modifications for heart health in kidney health: R V R/V * Vitamins and minerals: R V N/R * Healthy plate method concept: R * Physical activity: Benefits a precaution: R V N/R Patient Instructions: Work on reducing total carb to less than 60 g at meal following healthy plate method at dinner see meal ideas as reference Coding Level of Care Code Nutr Indiv Intake (99297) Diagnoses Severe obesity (BMI 35.0-35.9 with comorbidity) E66.01; Z68.35 Time Spent (min) 30
[2024-02-04 21:24] VITALS: BMI 35.7
== END 2024-02-03 13:33 | disposition home or self-care (01) ==
PROVIDERS: PCP Nurse Practitioner Family; Visit Provider Dietitian, Registered
DX: E66.01 Morbid (severe) obesity due to excess calories (principal); Z68.35 Body mass index [BMI] 35.0-35.9, adult

== ENCOUNTER → 2024-02-03 12:50 | Outpatient (BNVA) | payer OTHER, SELFPAY | PROVIDERS: PCP Nurse Practitioner Family; Visit Provider Dietitian, Registered | DX: E66.01 Morbid (severe) obesity due to excess calories (principal); Z68.35 Body mass index [BMI] 35.0-35.9, adult; K76.0 Fatty (change of) liver, not elsewhere classified; Z71.3 Dietary counseling and surveillance | CPT/HCPCS: 97802 ==

== ENCOUNTER 2024-03-07 08:50 | Outpatient (AMB) | payer OTHER, SELFPAY ==
--- NOTE | 2024-03-07 08:38 | MHC.PC.OV ---
Vital Signs 03/07/24 08:45 Height 5 ft 2 in Weight 188 lb BMI 34.4 Intake Visit Reasons: 6 weeks telehealth fu RIVER/back pain 30 min Allergies beeswax Allergy (Mild, Verified 03/07/24 08:40) Rash salicylic acid Allergy (Mild, Verified 03/07/24 08:40) Rash Medication List - Last Reconciled 03/07/24 by Flori Burgos, FIRE CONTROL MECHANIC- albuterol sulfate 90 mcg/actuation 2 puffs inhalation Q6H PRN budesonide-formoterol 80-4.5 mcg/actuation (Symbicort) 2 puffs inhalation BID famotidine 20 mg PO BID fluticasone propionate 50 mcg/actuation 2 sprays intranasal QAM hydroxyzine HCl 25 mg PO TID levonorgestrel-ethinyl estrad 0.1-20 mg-mcg (Sronyx) 1 tab PO DAILY lidocaine 5% 1 appl topical TID PRN montelukast 10 mg PO DAILY Tobacco use date assessed: 01/01/24 Dental Screening Dental Screen Date: 01/01/24 HPI HPI Comments History of Present Illness Details 28 y/o F with asthma, obesity, uterine fibroid s/p removal, GERD, RIVER, hyperlididemiaSurgery: 07/2022 uterine fibroid removal Family hx: Dad 03/2022 throat cancer dx now in remission [smoker] etoh abuse sober for years, Mom asthma Siblings: twin sister, younger 1/2 sister alive and well MGM sinus cancer MGF pancreatic cancer PGM breast cancer PGF liver cancer Social: 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 This has seemed to help. She was just called by Physical therapy last week and her 1st initial intake appointment is scheduled for 03/15/2024. For generalized anxiety disorder she was prescribed hydroxyzine 25 mg PO TID prn. Initially she was taking this once per day with positive effect. She was then able to establish care with a counselor. She has had 2-3 sessions so far and this has helped. She was reduce the use of hydroxyzine to once every other day or once every 2 days with continued positive relief of her anxiety symptoms. She met with a chain builder loom control for her hyperlipidemia and fatty liver. She was on a nutrition plan of what she was following. She has had positive intentional weight loss since this time. She has GERD and is taking famotidine. Refill requested. Her asthma is well controlled. However needs a routine refill on her albuterol. Plan Cont hydroxyzine 25 mg PO TID prn. & counseling. Cont Dietary and lifestyle modifications & care with nutrition. Continue with chiropractic medicine for upper back pain. Go to physical therapy as ordered. Remember to keep an eye on any fasting correlation with back pain as 1 of the differentials included was that of gallbladder disease. However at this time you are doing well. Refill sent on albuterol as well as famotidine. Return to office in 6 months fu (September 2024) for routine f/u of RIVER, HLD, Fatty liver, Asthma, fasting labs to be done 1 week before As always return to office sooner as needed This note is constructed using voice recognition software. While every effort has been made to ensure accuracy in bookbinding machine operator, still errors may have been included Sometimes, these errors may affect the content or meaning of the given sentence . Total time spent caring for the patient today was 20 minutes. This includes time spent before the visit reviewing the chart, time spent during the visit, and time spent after the visit on documentation [facility] Medical History (Updated 02/04/24 @ 21:[address], LDN) Asthma Surgical History (Updated 01/01/24 @ 11:17 by Maria Elena Mckeon MA) H/O myomectomy Family History (Updated 01/01/24 @ 11:19 by Maria Elena Mckeon MA) Father Substance abuse Throat cancer Mother Asthma Maternal Grandmother Breast cancer Pancreas cancer Paternal Grandfather Maxillary sinus cancer Liver cancer Social History (Updated 01/01/24 @ 11:10 by Maria Elena Mckeon MA) Household Members: Other Household Members Other:: fiance Housing: House Alcohol intake: never Patient Tobacco Use Status: Never used Tobacco e-Cigarette/Vaping Use: Never Used service: No Current occupational status: employed 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 Cognitive needs: No Hearing needs: No Vision needs: Yes (wear glasses) Questionnaire Thrive Questionnaire Date Thrive assessed: 02/29/24 I am a: Patient What is your living situation today?: I have a steady place to live Within the past 12 months, did the food you bought not last and you didn't have the money to get more?: Never true Within the past 12 months, did you worry whether your food would run out before you got money to buy more?: Never true Do you have trouble paying for medicines?: No Do you have trouble getting transportation to medical appointments?: No Do you have trouble paying your heating and electricity bill?: No Do you have trouble taking care of your child, family member or friend?: No Do you have trouble with day-to-day activities such as bathing, preparing meals, shopping, managing finances, etc.?: No Are you currently unemployed and looking for a job?: No Are you interested in more education?: I choose not to answer this question Please select the resources that you would like help with: None Currently or been in a relationship where the following occur: No concerns reported THRIVE Score: 0 AUDIT C Alcohol Use Questionnaire (AUDIT-C) 1. How often do you have a drink containing alcohol?: Monthly or less Total Score: 1 RIVER-7 AMB Questionnaire RIVER-7 Date RIVER - 7 assessed: 01/25/24 Feeling nervous, anxious, or on edge: 1 = Several days Not being able to stop or control worryin = Several days Worrying too much about different things: 1 = Several days Trouble relaxin = Several days Being so restless that it is hard to sit still: 0 = Not at all Becoming easily annoyed or irritable: 0 = Not at all Feeling afraid as if something awful might happen: 0 = Not at all Total RIVER-7 score (0-4 normal; 5-9 mild; 10-14 moderate; 15-21 severe): 4 Source: Developed by Drs. Luis Dawson, Tri Sagastume, Km Melgoza and colleagues, with an educational radames from [employer]. Physical exam (Primary Care) Tobacco/Smoking Status: Tobacco use Status Tobacco use date assessed 01/01/24 01/25/24 09:02 Patient Tobacco Use Status Never used Tobacco 01/25/24 09:02 e-Cigarette/Vaping Use Never Used 01/25/24 09:02 Thrive Assessment: Date of Thrive Assessment Date Thrive assessed 02/29/24 02/29/24 13:07 Currently or been in a relationship where the following occur: No concerns reported Telehealth Telehealth [facility] Location of provider rendering services: practice address Location of patient: address on file Patient Identification confirmed using: Name, : Yes Telehealth method: voice only Patient verbally consented to treatment: Yes Patient verbally consented to billing insurance company: Yes Patient informed of any privacy concerns related to visit: Yes Minutes spent on Phone/Video with Pt.: 8 Coding Level of Care Code Tele Est Pt Level 2 (11081) Complex EM visit Add On G2211 Diagnoses Moderate mixed hyperlipidemia not requiring statin therapy E78.2 Hyperlipidemia type: moderate mixed hyperlipidemia not requiring statin therapy Fatty liver K76.0 Mild intermittent asthma in adult without complication J45.20 Upper back pain M54.9 RIVER (generalized anxiety disorder) F41.1 Assessment & Plan Assessment & Plan (1) Hyperlipidemia: Code(s): E78.5 - Hyperlipidemia, unspecified Category: Medical Qualifiers: Hyperlipidemia type: moderate mixed hyperlipidemia not requiring statin therapy Qualified Code(s): E78.2 - Mixed hyperlipidemia Plan: . (2) Fatty liver: Code(s): K76.0 - Fatty (change of) liver, not elsewhere classified Category: Medical Plan: . (3) Mild intermittent asthma in adult without complication: Code(s): J45.20 - Mild intermittent asthma, uncomplicated Category: Medical Plan: . (4) Upper back pain: Code(s): M54.9 - Dorsalgia, unspecified Category: Medical Plan: . (5) RIVER (generalized anxiety disorder): Code(s): F41.1 - Generalized anxiety disorder Category: Medical Plan: . Orders: Orders Lipid Panel 08/28/24 E78.2 - Mixed hyperlipidemia, K76.0 - Fatty (change of) liver, not elsewhere classified Comprehensive [place]. Panel Fast 08/28/24 E78.2 - Mixed hyperlipidemia, K76.0 - Fatty (change of) liver, not elsewhere classified Medications: New albuterol sulfate 90 mcg/actuation 2 puffs inhalation Q6H PRN 8.5 grams 2RF shortness of breath or wheezing Changed From famotidine 20 mg PO BID To famotidine 20 mg PO BID 90 days 180 tabs 2RF
[2024-03-07 08:45] VITALS: BMI 34.4
== END 2024-03-07 08:59 | disposition home or self-care (01) ==
LOC: HO.HMCFM 08:50
PROVIDERS: PCP Nurse Practitioner Family; Visit Provider Nurse Practitioner Family
DX: E78.2 Mixed hyperlipidemia (principal); K76.0 Fatty (change of) liver, not elsewhere classified; J45.20 Mild intermittent asthma, uncomplicated; M54.9 Dorsalgia, unspecified; F41.1 Generalized anxiety disorder

== ENCOUNTER → 2024-03-07 08:50 | Outpatient (BNVA) | payer OTHER, SELFPAY | PROVIDERS: PCP Nurse Practitioner Family; Visit Provider Nurse Practitioner Family ==

== ENCOUNTER 2024-03-30 11:34 | Outpatient (AMB) | payer OTHER, SELFPAY ==
[2024-03-30 11:39] VITALS: BMI 35.6
--- NOTE | 2024-03-30 11:39 | A.OFFVIS_ITS ---
VS Expanded 03/30/24 11:39 Height 5 ft 2 in Weight 194 lb 10.691 oz BMI 35.6 Intake Visit Reasons: Weight management/CONFIRMED Allergies beeswax Allergy (Mild, Verified 03/07/24 08:40) Rash salicylic acid Allergy (Mild, Verified 03/07/24 08:40) Rash Nutrition Presentation Details: Pt presents for MNT for fatty liver, obesity, hyperlipidemia food frequency fruits: 0 vegetables : 2x/wk dairy: 4+ fish: not including starches > 18+ eating out 2x/wk etoh/smoking: --- physical activity - BS Monitoring Most Recent Diabetes Results: Creatinine 0.70 mg/dL (0.5-1.4) 01/22/24 Blood Urea Nitrogen 10 mg/dL (9-16) 01/22/24 Sodium 142 mmol/L (135-145) 01/22/24 Potassium 4.3 mmol/L (3.3-5.1) 01/22/24 Chloride 105 mmol/L (96-108) 01/22/24 Carbon Dioxide 25 mmol/L (22-29) 01/22/24 Calcium 9.7 mg/dL (8.4-10.2) 01/22/24 AST 24 U/L (5-31) 01/22/24 ALT 33 U/L (0-31) H 01/22/24 Total Protein 8.0 g/dL (6.5-8.0) 01/22/24 Albumin 4.7 g/dL (3.5-5.0) 01/22/24 DYE-Etfcylq-Lq.Jeor Equation Height: 5 ft 2 in Weight: 195 lb Resting Metabolic Rate: 1578.95 Calculated Activity Level: Sedentary Calories Needed to Maintain Weight: 1894.74 Diagnosis Nutrition problem #1: food nutri know defi As related to (etiology) #1: diagnosis As evidenced by (sign/symptom) #1: knowledge deficit of diet [facility] Medical History (Updated 02/04/24 @ 21:[address], LDN) Asthma Surgical History (Updated 01/01/24 @ 11:17 by Maria Elena Mckeon MA) H/O myomectomy Family History (Updated 01/01/24 @ 11:19 by Maria Elena Mckeon MA) Father Substance abuse Throat cancer Mother Asthma Maternal Grandmother Breast cancer Pancreas cancer Paternal Grandfather Maxillary sinus cancer Liver cancer Social History (Updated 01/01/24 @ 11:10 by Maria Elena Mckeon MA) Household Members: Other Household Members Other:: fiance Housing: House Alcohol intake: never Patient Tobacco Use Status: Never used Tobacco e-Cigarette/Vaping Use: Never Used service: No Current occupational status: employed 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 Cognitive needs: No Hearing needs: No Vision needs: Yes (wear glasses) Assessment & Plan Assessment & Plan (1) Severe obesity (BMI 35.0-35.9 with comorbidity): Comment: BMI > 35 , fatty liver, hyperlipidemia Code(s): E66.01 - Morbid (severe) obesity due to excess calories; Z68.35 - Body mass index [BMI] 35.0-35.9, adult Category: Medical Plan: Wt: 89 Kg ( 04/26 ) Est kcal needs as per MSJ: 1900 (40% carb, 30% protein/fat) Est fluid needs as per 25-30 ml/d: 2700 Est prot per day as per 1 g/kg bw:89 Recommend fiber intake : 8-10 g per day and gradually increase to 25-28 g per day for women and 35-38 g for men or as tolerated Recommend sodium intake per day : less than 2300 mg Educated patient on: ( R = reviewed V = verbalizes understanding N/R = needs review N/A = not applicable * Food sources of carbohydrate, adequate serving sizes and its role in various health conditions: R * Differences between complex carbohydrates a simple carbohydrates, role of fiber in diet: R * Lean protein sources of foods: R V NR * Differences between types of fats and role in diet (mono on saturated fat fatty acids, saturated fatty acids, trans fats): R * Food sources of sodium in salt and healthy modifications for heart health in kidney health: R V R/V * Vitamins and minerals: R V N/R * Healthy plate method concept: R V N/R * Physical activity: Benefits a precaution: R V N/R Patient Instructions: Work on reducing sugars/total carbs to less than 60 g carb per meal 3 meals/day and 0-20 g as snack 2 /day Choose high fiber sources of foods Coding Level of Care Code Nutr Indiv Intake (55379) Diagnoses Severe obesity (BMI 35.0-35.9 with comorbidity) E66.01; Z68.35 Time Spent (min) 30
[2024-04-06 18:55] VITALS: BMI 35.7
== END 2024-03-30 12:41 | disposition home or self-care (01) ==
PROVIDERS: PCP Nurse Practitioner Family; Visit Provider Dietitian, Registered
DX: E66.01 Morbid (severe) obesity due to excess calories (principal); Z68.35 Body mass index [BMI] 35.0-35.9, adult

== ENCOUNTER → 2024-03-30 11:34 | Outpatient (BNVA) | payer OTHER, SELFPAY | PROVIDERS: PCP Nurse Practitioner Family; Visit Provider Dietitian, Registered | DX: E66.01 Morbid (severe) obesity due to excess calories (principal); Z68.35 Body mass index [BMI] 35.0-35.9, adult; Z71.3 Dietary counseling and surveillance | CPT/HCPCS: 97802 ==

== ENCOUNTER 2025-02-08 11:50 | Outpatient (AMB) | payer OTHER, SELFPAY ==
--- NOTE | 2025-02-08 11:54 | A.OFFPC_ITS ---
Vital Signs 02/08/25 11:56 Height 5 ft 2 in Weight 184 lb BMI 33.7 BP 114/68 Blood Pressure Location Rt brachial Position Sitting Pulse 90 Pulse Source Pulse Oximeter Pulse Oximetry (%) 97 Oxygen Delivery Method Room Air Intake Visit Reasons: Annual pe Allergies beeswax Allergy (Mild, Verified 02/08/25 11:58) Rash salicylic acid Allergy (Mild, Verified 02/08/25 11:58) Rash Medication List - Last Reconciled 02/08/25 by Flori Burgos, [facility]- albuterol sulfate 90 mcg/actuation 2 puffs inhalation Q6H PRN budesonide-formoterol 80-4.5 mcg/actuation (Symbicort) 2 puffs inhalation BID docosahexaenoic acid ( DHA) mg PO famotidine 20 mg PO BID 90 days fluticasone propionate 50 mcg/actuation 2 sprays intranasal QAM hydroxyzine HCl 25 mg PO TID lidocaine 5% 1 appl topical TID PRN montelukast 10 mg PO DAILY Tobacco use date assessed: 02/08/25 Dental Screening Dental Screen Date: 02/08/25 Did you have a dental visit in the last 12 months?: Yes Did you have a dental problem in the last 6 months where you did not have access to dental care?: No Was dental information given to patient?: Patient has dentist HPI HPI Comments History of Present Illness Details 28 y/o F with asthma, obesity, uterine f ibroid s/p removal, GERD, RIVER, hyperlididemia Surgery: 07/2022 uterine fibroid removal Family hx: Dad 03/2022 throat cancer dx now in remission [smoker] etoh abuse sober for years, Mom asthma Siblings: twin sister, younger 1/2 sister alive and well MGM sinus cancer MGF pancreatic cancer PGM breast cancer PGF liver cancer 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 September 2024; trying to get HEALTH MAINTENANCE: PAP reports WNL done in 2021 TDAP 01/2024 Flu 2024 SPECIALISTS: [facility] Pulm @ [facility] ENT Nutrition Counseling - no longer Optho wears glasses, last exam September 2023; no big changes History of Present Illness The patient is a 29-year-old female presenting for CPE Nasal breathing changes; 6 mo; hard to breath out of R side. Happened after being sick with URI. Flonase does not help. It causes nasal drying. trying to conceive for last 6 mo LMP 01/14/25 Asthma well controlled; Vaccines UTD. RIVER controlled for the most part; prn hydroxyzine. Has nightmares qHs. SLeeping fine. but restless d/t nightmares. Denies any changes that would have cuased this. NO longer in counseling. HLD/Obesity - did see wholesale diamond broker; this was helpful; fell out of care. Due for labs back pain is better s/p chiro. GERD controlled on famotidine. Allergic Rhinitis: - Difficulty breathing through one nostr il. - Onset post-head cold. - Nasal spray use with drying but no rel ief. Anxiety Disorder: - Anxiety concerning conception difficul ties. - Noted familial conception issues. Asthma: - Managed with Symbicort, Albuterol. - No recent exacerbations. Nightmares: - Vivid nightmares nightly. - Ceased counseling. Deviated Nasal Septum: - Structural issue affects breathing. Attempt to Conceive: - Attempting since August. - History impacts concern about concepti on. Gastroesophageal Reflux Disease (GERD): - Managed with OTC Famotidine. Hypercholesterolemia: - Last visit to wholesale diamond broker in April . Back Pain: - Improved with transitional care liaison. Family History - Mother has breast cysts under surveill ance. - Noted familial difficulties with lorenzo ption. 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 - Recently , trying to conceive. - Denies use of tobacco, vaping, alcohol . - Manages anxiety; previously stopped co unseling. - Regular dental visits reported. Health Maintenance - Regular dental check-ups. - Receiving flu vaccine at work. - vitamins in use. - Previously managed cholesterol with di etary changes, awaiting lab results. - Symbicort prescription refilled. Review of Systems - Respiratory: Reports breathing difficu lty predominantly on the right side; denies general congestion. - Allergy/Immunology: Reports allergies to beeswax, salicylic acid, and certain berries. - Neurology: Reports vivid nightmares; d enies new headaches or loss of consciousness. - Gastrointestinal: Reports controlled G ERD symptoms; denies change in bowel movements. - Psychological: Reports anxiety related to conception issues; denies current depression or counseling. Physical Exam General: Well developed, well nourished, in no acute distress. Appears stated age. Head: Normocephalic, atraumatic. Eyes: Pupils are equal, round and reactive to light and accommodation. Conjunctivae are clear. Scleras nonicteric bilat. Vision grossly normal. Ears: TMs clear AU, EACS WNL Nose: Deviated septum noted, No discharge. Neck: No carotid bruit bilat. Supple, no adenopathy or thyromegaly. Breast: Edu on SBE Lungs: Clear to auscultation bilaterally. No rales, rhonchi or wheeze noted. Good air flow in all robert. Heart: Regular rate and rhythm. No murmurs, click, rubs or gallops are noted. Abdomen: Bowel sounds present in all quadrants. The abdomen is soft, nontender, with no masses or organomegaly noted. No hernias are noted. : Deferred. Reviewed recommendations for routine X R[facility] CONSULTANT Pulses: Peripheral pulses are equal and palpable bilaterally. Extremities: No clubbing, cyanosis nor edema is noted. Neurologic: Gait and station normal. Cranial Nerves 2-12 intact. Motor strength grossly symmetrical and intact. No sensory loss. Balance normal. Skin: No rashes, ulcers, or lesions noted. Turgor is good. Skin color is good. Hair and nails are without abnormalities. Psych: Normal eye contact, affect and mood appropriate, and normal interactions. Patient is alert and appropriate to context. Results Pending Discussion Notes I reviewed with the patient the potential contributors to her primary complaints, including stressors contributing to her anxiety and its impact on attempts to conceive. I addressed management options for her diagnosed allergic rhinitis, recommending starting nasal saline and limited use of Flonase for symptom management. We discussed her asthma management with continued usage of Symbicort and Albuterol. I listened to her concerns about the vivid nightmares, which may link to prior trauma experiences, and suggested a referral for trauma- informed counseling, acknowledging prior ineffective therapy encounters. We reviewed her asthma management and discussed vitamins, her recent cholesterol management improvement efforts, and how upcoming lab results will guide further clinical decisions. Her back pain managed by chiropractic intervention showed significant improvement. I validated familial concerns and previous surgical history that may influence her conception efforts. Follow-ups were planned in line with regular health maintenance schedules. Patient was given time to ask questions. All questions were answered to their satisfaction. Assessment and Plan 1. Allergic Rhinitis - USe Nasal saline; Flonase as needed. - If cont if worsens, let me know and we can re-consult ENT 2. Anxiety Disorder - Trauma-based therapy referral. - cont prn hydroxyzine sparingly; no new meds at this time given trying to get . discussed cyproheptadine as potential for nightmares prn 3. Asthma - Symbicort, Albuterol. Vaccines UTd, active w pulm 4. Nightmares - Therapy for potential trauma. 5. Deviated Nasal Septum - Conservative treatment. 6. Attempt to Conceive - Monitor cycles, familial factors. 7. Gastroesophageal Reflux Disease (GERD ) - Continue Famotidine. 8. Hypercholesterolemia - Await labs, potential dietary follow-u p. Patient Instructions - Use nasal saline daily and Flonase if needed. - Continue asthma inhalers as prescribed . - Take OTC Famotidine for acid reflux re lief. - Schedule a follow-up with a new therap ist for trauma. - Attend to lab tests requested. - Report any change in breathing or anxi ety levels. - RTO 1 year for CPE sooner as needed Consent. Patient was informed and verbally consented to the use of an ambient scribe for clinic note documentation during this visit. [facility] Medical History (Updated 02/08/25 @ 12:26 by Flroi Burgos, [facility]) Asthma Severe obesity (BMI 35.0-35.9 with comorbidity) Surgical History (Updated 01/01/24 @ 11:17 by Maria Elena Mckeon MA) H/O myomectomy Family History (Updated 01/01/24 @ 11:19 by Maria Elena Mckeon MA) Father Substance abuse Throat cancer Mother Asthma Maternal Grandmother Breast cancer Pancreas cancer Paternal Grandfather Maxillary sinus cancer Liver cancer Social History (Updated 01/01/24 @ 11:10 by Maria Elena Mckeon MA) Household Members: Other Household Members Other:: fiance Housing: House Alcohol intake: never Patient Tobacco Use Status: Never used Tobacco e-Cigarette/Vaping Use: Never Used service: No Current occupational status: employed 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 1. Little interest or pleasure in doing things: not at all 2. Feeling down, depressed, or hopeless: several days 3. Trouble falling or staying asleep, or sleeping too much: not at all 4. Feeling tired or having little energy: several days 5. Poor appetite or overeating: not at all 6. Feeling bad about yourself - or that you are a failure or have let yourself or your family down: not at all 7. Trouble concentrating on things, such as reading the newspaper or watching television: not at all 8. Moving or speaking so slowly that other people could have noticed. Or the opposite - being so fidgety or restless that you have been moving around a lot more than usual: not at all 9. Thoughts that you would be better off or of hurting yourself in some way: not at all Total score: 2 Depression Screening Interpretation: Negative Depression Screening Done: Yes 23468 - PHQ-9 Billing: Yes Source: Developed by Drs. Luis Dawson, Tri Sagastume, Km Melgoza and colleagues, with an educational radames from [employer]. Thrive Questionnaire Date Thrive assessed: 02/01/25 I am a: Patient What is your living situation today?: I have a steady place to live Within the past 12 months, did the food you bought not last and you didn't have the money to get more?: Never true Within the past 12 months, did you worry whether your food would run out before you got money to buy more?: Never true Do you have trouble paying for medicines?: No Do you have trouble getting transportation to medical appointments?: No Do you have trouble paying your heating and electricity bill?: No Do you have trouble taking care of your child, family member or friend?: No Do you have trouble with day-to-day activities such as bathing, preparing meals, shopping, managing finances, etc.?: No Are you currently unemployed and looking for a job?: No Are you interested in more education?: I choose not to answer this question Please select the resources that you would like help with: None Currently or been in a relationship where the following occur: I choose not to answer THRIVE Score: 0 AUDIT C Alcohol Use Questionnaire (AUDIT-C) 1. How often do you have a drink containing alcohol?: Monthly or less 2. How many drinks containing alcohol do you have on a typical day when you are drinking?: 1 or 2 3. How often do you have six or more drinks on one occasion?: Never Total Score: 1 Score Reviewed/Action Taken: Yes RIVER-7 AMB Questionnaire RIVER-7 Date RIVER - 7 assessed: 02/08/25 Feeling nervous, anxious, or on edge: 1 = Several days Not being able to stop or control worryin = Not at all Worrying too much about different things: 0 = Not at all Trouble relaxin = Not at all Being so restless that it is hard to sit still: 0 = Not at all Becoming easily annoyed or irritable: 0 = Not at all Feeling afraid as if something awful might happen: 0 = Not at all Total RIVER-7 score (0-4 normal; 5-9 mild; 10-14 moderate; 15-21 severe): 1 Source: Developed by Drs. Luis Dawson, Tri Sagastume, Km Melgoza and colleagues, with an educational raadmes from [employer]. RIVER-7 Assessment Billing RIVER-7 Assessment Tool: RIVER-7 Assessment 34427 ACT Questionnaire In the past 4 weeks, how much of the time did your asthma keep you from getting as much done at work, school or at home?: None of the time During the past 4 weeks, how often have you had shortness of breath?: Not at all During the past 4 weeks, how often did your asthma symptoms wake you up at night or earlier than usual in the morning?: Not at all During the past 4 weeks, how often have you had to use your rescue inhaler or nebulizer medication?: Not at all How would you rate your asthma control during the past 4 weeks?: Completely controlled ACT Interpretation: Negative Score: 25 Physical exam (Primary Care) BMI Assessment/Plan discussion: High BMI High, discussed plan: lifestyle Tobacco/Smoking Status: Tobacco use Status Tobacco use date assessed 01/01/24 03/29/24 13:22 Patient Tobacco Use Status Never used Tobacco 03/29/24 13:22 e-Cigarette/Vaping Use Never Used 03/29/24 13:22 Depression Screening Interpretation: Negative Thrive Assessment: Date of Thrive Assessment Date Thrive assessed 02/01/25 02/01/25 12:17 Currently or been in a relationship where the following occur: I choose not to answer Coding Level of Care Code Est Pt Prev Care 18-39y(10601) Diagnoses Encounter for general adult medical examination without abnormal findings Z00.00 Laboratory exam ordered as part of routine general medical examination Z00.00 RIVER (generalized anxiety disorder) F41.1 Moderate mixed hyperlipidemia not requiring statin therapy E78.2 Hyperlipidemia type: moderate mixed hyperlipidemia not requiring statin therapy GERD without esophagitis K21.9 Fatty liver K76.0 Upper back pain M54.9 Mild intermittent asthma in adult without complication J45.20 History of Papanicolaou smear of cervix Z92.89 Deviated nasal septum J34.2 Nightmares F51.5 Obesity (BMI 30-39.9) E66.9 Additional Codes PHQ-9 - 96869 - PHQ-9 Billing: Yes ([id number]) RIVER-7 Assessment Billing - RIVER-7 Assessment Tool: RIVER-7 Assessment 03182 ([id number]) Asthma Control Questionnaire - ACT Interpretation: Negative ([id number]) Assessment & Plan Assessment & Plan (1) Encounter for general adult medical examination without abnormal findings: Onset Date: ~02/08/25 Code(s): Z00.00 - Encounter for general adult medical examination without abnormal findings Category: Medical (2) Laboratory exam ordered as part of routine general medical examination: Code(s): Z00.00 - Encounter for general adult medical examination without abnormal findings Category: Medical (3) RIVER (generalized anxiety disorder): Code(s): F41.1 - Generalized anxiety disorder Category: Medical (4) Hyperlipidemia: Code(s): E78.5 - Hyperlipidemia, unspecified Category: Medical Qualifiers: Hyperlipidemia type: moderate mixed hyperlipidemia not requiring statin therapy Qualified Code(s): E78.2 - Mixed hyperlipidemia (5) GERD without esophagitis: Code(s): K21.9 - Gastro-esophageal reflux disease without esophagitis Category: Medical (6) Fatty liver: Code(s): K76.0 - Fatty (change of) liver, not elsewhere classified Category: Medical (7) Upper back pain: Code(s): M54.9 - Dorsalgia, unspecified Category: Medical (8) Mild intermittent asthma in adult without complication: Code(s): J45.20 - Mild intermittent asthma, uncomplicated Category: Medical (9) History of Papanicolaou smear of cervix: Onset Date: ~2021 Code(s): Z92.89 - Personal history of other medical treatment Category: Medical (10) Deviated nasal septum: Code(s): J34.2 - Deviated nasal septum Category: Medical (11) Nightmares: Code(s): F51.5 - Nightmare disorder Category: Medical (12) Obesity (BMI 30-39.9): Code(s): E66.9 - Obesity, unspecified Category: Medical Plan . Orders: Orders TSH reflex Free T4 Today Z00.00 - Encounter for general adult medical examination without abnormal findings Referrals Nurse Navigator Referral F41.1 - Generalized anxiety disorder Medications: New budesonide-formoterol 80-4.5 mcg/actuation (Symbicort) 2 puffs inhalation BID 10.2 grams 12RF Patient Instructions: Health screenings for women You should visit your health care provider from time to time, even if you are healthy. The purpose of these visits is to: Screen for medical issues Assess your risk for future medical problems Encourage a healthy lifestyle Update vaccinations and other preventive care services Help you get to know your provider in case of an illness Information Even if you feel fine, you should still see your provider for regular checkups. These visits can help you avoid problems in the future. For example, the only way to find out if you have high blood pressure is to have it checked regularly. High blood sugar and high cholesterol levels also may not have any symptoms in the early stages. A simple blood test can check for these conditions. There are specific times when you should see your provider or receive specific health screenings. The [place] Preventive Services Task Force publishes a list of recommended screenings. Below are screening guidelines for women ages 18 to 39. BLOOD PRESSURE SCREENING Your blood pressure should be checked at least once every 3 to 5 years if: Your blood pressure is in the normal range (top number less than 120 mm Hg and bottom number less than 80 mm Hg) You don't have risk factors for high blood pressure Ask your provider if you need your blood pressure checked more often if: The top number is 120 to 129 mm Hg or the bottom number is 70 to 79 mm Hg You have diabetes, heart disease, kidney problems, are overweight, or have certain other health conditions You have a first-degree relative with high blood pressure You are Black You had high blood pressure during a If the top number is 130 mm Hg or greater or the bottom number is 80 mm Hg or greater, this is considered stage 1 hypertension. Schedule an appointment with your provider to learn how you can reduce your blood pressure. Watch for blood pressure screenings in your area. Ask your provider if you can stop in to have your blood pressure checked. BREAST CANCER SCREENING Experts do not agree about the benefits of breast self-exams in finding breast cancer or saving lives. Talk to your provider about what is best for you. A screening mammogram is not recommended for most women under age 40. Your provider may discuss and recommend mammograms, MRI scans, or ultrasounds if you have an increased risk for breast cancer, such as: A mother or sister who had breast cancer at a young age (most often starting screening earlier than the age the close relative was diagnosed) You carry a high-risk genetic marker CERVICAL CANCER SCREENING Cervical cancer screening should start at age 21 years unless your provider advises otherwise. After the first test: Women ages 21 through 29 should have a Pap test every 3 years. Exoprts do not agree on whether HPV testing is recommended for this age group. Women ages 30 through 65 should be screened with either a Pap test every 3 years or the HPV test every 5 years or both tests every 5 years (called cotesting ). Women who have been treated for precancer (cervical dysplasia) should continue to have Pap tests for 20 years after treatment or until age 65, whichever is longer. If you have had your uterus and cervix removed (total hysterectomy), and you have not been diagnosed with cervical cancer or precancer (high grade cervical neoplasia), you do not need cervical cancer screening. CHOLESTEROL SCREENING Cholesterol screening should begin at: Age 45 for women with no known risk factors for coronary heart disease Age 20 for women with known risk factors for coronary heart disease Repeat cholesterol screening should take place: Every 5 years for women with normal cholesterol levels More often if changes occur in lifestyle (including weight gain and diet) More often if you have diabetes, heart disease, kidney problems, or certain other conditions DIABETES SCREENING You should be screened for diabetes starting at age 35 and then repeated every 3 years if you have no risk factors for diabetes. Screening may need to start earlier and be repeated more often if you have other risk factors for diabetes, such as: You have a first degree relative with diabetes. You are overweight or have obesity. You have high blood pressure, prediabetes, or a history of heart disease. Screening for diabetes should be done if you are planning to become and you are overweight and have other risk factors such as high blood pressure. DENTAL EXAM Go to the dentist once or twice every year for an exam and cleaning. Your dentist will evaluate if you need more frequent visits. EYE EXAM Have an eye exam every 5 to 10 years before age 40. If you have vision problems, have an eye exam every 2 years or more often if recommended by your provider. You should have an eye exam that includes an examination of your retina (back of your eye) at least every year if you have diabetes. IMMUNIZATIONS Commonly needed vaccines include: Flu shot: get one every year. COVID-19 vaccine: ask your provider what is best for you. Tetanus-diphtheria and acellular pertussis (Tdap) vaccine: have one at or after age 19 as one of your tetanus-diphtheria vaccines if you did not receive it as an adolescent. Tetanus-diphtheria: have a booster (or Tdap) every 10 years. Varicella vaccine: receive 2 doses if you never had chickenpox or the varicella vaccine. Hepatitis B vaccine: receive 2, 3, or 4 doses, depending on your exact circumstances. Measles, mumps, and rubella (MMR) vaccine: receive 1 to 2 doses if you are not already immune to MMR. Your provider can tell you if you are immune. Ask your provider about the human papillomavirus (HPV) vaccine if: You have not received the HPV vaccine in the past You have not completed the full vaccine series (you should catch up on this shot) Ask your provider if you should receive other immunizations if you have certain health problems that increase your risk for some diseases such as pneumonia. INFECTIOUS DISEASE SCREENING Women who are sexually active should be screened for chlamydia and gonorrhea up until age 25. Women 25 years and older should be screened for chlamydia and gonorrhea if at high risk. Screening for hepatitis C: All adults ages 18 to 79 should get a one-time test for hepatitis C. people should be screened at every . Screening for human immunodeficiency virus (HIV): All people ages 15 to 65 should get a one-time test for HIV. Depending on your lifestyle and medical history, you may also need to be s creened for infections such as syphilis and HIV, as well as other infections. PHYSICAL EXAM All adults should visit their provider from time to time, even if they are healthy. The purpose of these visits is to: Screen for disease Assess your risk of future medical problems Encourage a healthy lifestyle Update your vaccinations and other preventive care services Maintain a relationship with a provider in case of an illness Your height, weight, and BMI should be checked at every exam. During your exam, your provider may ask you about: Depression and anxiety Diet and exercise Alcohol and tobacco use Safety issues, such as using seat belts, smoke detectors, and intimate partner violence Your medicines and risk for interactions SKIN SELF-EXAM Your provider may check your skin for signs of skin cancer, especially if you're at high risk, such as if you: Have had skin cancer before Have close relatives with skin cancer Have a weakened immune system OTHER SCREENING Talk with your provider about colon cancer screening if you have a strong family history of colon cancer or polyps, or if you have had inflammatory bowel disease or polyps yourself. Routine bone density screening of women under 40 is not recommended.
[2025-02-08 11:56] VITALS: BP 114/68; PULSE 90; O2SAT 97; BMI 33.7
== END 2025-02-08 12:20 | disposition home or self-care (01) ==
LOC: HO.HMCFM 11:50
PROVIDERS: PCP Nurse Practitioner Family; Visit Provider Nurse Practitioner Family
DX: Z00.00 Encounter for general adult medical examination without abnormal findings (principal); F41.1 Generalized anxiety disorder; E66.9 Obesity, unspecified; Z68.33 Body mass index [BMI] 33.0-33.9, adult; E78.2 Mixed hyperlipidemia; K21.9 Gastro-esophageal reflux disease without esophagitis; K76.0 Fatty (change of) liver, not elsewhere classified; M54.9 Dorsalgia, unspecified; J45.20 Mild intermittent asthma, uncomplicated; Z92.89 Personal history of other medical treatment; J34.2 Deviated nasal septum; F51.5 Nightmare disorder

== ENCOUNTER → 2025-02-08 11:50 | Outpatient (BNVA) | payer OTHER, SELFPAY | PROVIDERS: PCP Nurse Practitioner Family; Visit Provider Nurse Practitioner Family | DX: Z00.00 Encounter for general adult medical examination without abnormal findings (principal); J30.9 Allergic rhinitis, unspecified; F51.5 Nightmare disorder; J34.2 Deviated nasal septum; K21.9 Gastro-esophageal reflux disease without esophagitis; M54.9 Dorsalgia, unspecified; F41.1 Generalized anxiety disorder; E78.2 Mixed hyperlipidemia; K76.0 Fatty (change of) liver, not elsewhere classified; J45.20 Mild intermittent asthma, uncomplicated; E66.9 Obesity, unspecified; Z68.33 Body mass index [BMI] 33.0-33.9, adult; Z92.89 Personal history of other medical treatment | CPT/HCPCS: 96127; 96160 ==

== ENCOUNTER 2025-02-09 07:35 | Outpatient (REF) | payer OTHER, SELFPAY ==
[2025-02-09 11:07] LABS: Alanine Aminotransferase 27 U/L (0-31); Albumin Level 4.5 g/dL (3.5-5.0); Alkaline Phosphatase 76 U/L (39-117); Anion Gap 8 (12-20); Aspartate Amino Transferase 32 U/L (5-31); Blood Urea Nitrogen 13 mg/dL (9-16); Calcium 9.2 mg/dL (8.4-10.2); Carbon Dioxide 26 mmol/L (22-29); Chloride 112 mmol/L (96-108); Cholesterol 121 mg/dL (<200); Estimated Glomerular Filt Rate > 60; HDL Cholesterol 51 mg/dL (>40); Potassium 4.4 mmol/L (3.3-5.1); Sodium 142 mmol/L (135-145); Total Protein 6.8 g/dL (6.5-8.0); Triglycerides 37 mg/dL (<150)
== END 2025-02-09 07:36 | disposition home or self-care (01) ==
LOC: HO.10HDL 07:35
PROVIDERS: Visit Provider Nurse Practitioner Family
DX: Z00.00 Encounter for general adult medical examination without abnormal findings (principal); E78.2 Mixed hyperlipidemia; K76.0 Fatty (change of) liver, not elsewhere classified
CPT/HCPCS: 36415; 80053; 80061; 84443